=== PATIENT | male | born 1965 ===

== ENCOUNTER 2021-12-18 08:59 | Inpatient (IN) ==
[2021-12-08 15:54] LABS: Basophils # (Auto) 0.02 K/mcL (0.00-0.30); Basophils % (Auto) 0.3 % (0.0-2.0); Eosinophils # (Auto) 0.01 K/mcL (0.00-0.70); Eosinophils % (Auto) 0.2 % (0.0-7.0); Hematocrit 39.8 % (34.1-44.9); Hemoglobin 13.9 g/dL (11.2-15.7); Lymphocytes # (Auto) 1.88 K/mcL (1.50-4.80); Lymphocytes % (Auto) 31.9 % (15.5-49.0); Mean Cell Volume 88.2 fL (80.0-100.0); Mean Corpuscular HGB Conc 34.9 g/dL (31.0-36.0); Mean Platelet Volume 10.3 fL (7.4-10.4); Monocytes # (Auto) 0.53 K/mcL (0.10-0.90); Neutrophils % (Auto) 58.6 % (38.0-78.0); Platelet Count 278 K/mcL (140-440); RBC 4.51 M/mcL (3.59-5.38); WBC 5.9 K/mcL (4.5-11.0)
[2021-12-08 16:16] LABS: Blood Urea Nitrogen 12 mg/dL (6-20); Calcium 8.6 mg/dL (8.6-10.4); Carbon Dioxide 23 mmol/L (22-30); Chloride 105 mmol/L (96-108); Glomerular Filtration Rate 103; Glucose 89 mg/dL (70-105)
[2021-12-08 16:43] LABS: Appearance,Urine HAZY (Clear); Bilirubin,Urine Negative (Negative); Color,Urine YELLOW; Culture Indicated,Urine No; Glucose,Urine (UA) Negative (Negative); Ketones,Urine 5 mg/dL (Negative); Leukocyte Esterase,Urine Negative /uL (Negative); Nitrate,Urine Negative (Negative); Protein,Urine Negative (Negative); Specific Gravity,Urine 1.021 (1.000-1.035); Urine Blood Negative (Negative); Urobilinogen,Urine Negative
--- NOTE | 2021-12-15 06:56 | EKG ---
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
[~2021-12-18 08:59] MED LIST: 0.9 % SODIUM CHLORIDE 9 ML, KETOROLAC 30 MG, ROPIVACAINE HCL/PF 49.5 ML, EPINEPHrine 0.... IJ SCH; ACETAMINOPHEN 500 MG TABLET PO SCH; CELECOXIB 200 MG CAPSULE PO SCH; IPRATROPIUM/ALBUTEROL 3 ML AMPUL.NEB NEB PRN; PREGABALIN 75 MG CAPSULE PO SCH; SCOPOLAMINE 1 PATCH PATCH TOPICAL PRN; ceFAZolin 2 GM in DEXTROSE 5% IN WATER 50 ML IV SCH; oxyCODONE 10 MG TAB.ER.12H PO SCH
[2021-12-18 09:18] LABS: POC Calcium, Ionized 1.1 (1.16-1.32); POC Creatinine 0.6 (0.6-1.2); POC Potassium 2.8 (3.3-5.1)
[2021-12-18] MEDS ORDERED: POTASSIUM CHLORIDE 20 MEQ in DEXTROSE 5% IN WATER 250 ML IV SCH (09:50)
[2021-12-18] MEDS ORDERED: POTASSIUM CHLORIDE 20 MEQ PACKET PO SCH (09:50)
[2021-12-18] MEDS ORDERED: PROPOFOL 200 MG/20 ML VIAL IV ONE (10:44)
[2021-12-18] MEDS ORDERED: LIDOCAINE HCL/PF 100 MG/5 ML SYRINGE IV ONE (10:44)
[2021-12-18] MEDS ORDERED: ONDANSETRON 4 MG/2 ML VIAL ONE (10:44)
[2021-12-18] MEDS ORDERED: MAGNESIUM SULFATE 2 GM/50 ML BAG IV ONE (10:44)
[2021-12-18] MEDS ORDERED: KETAMINE 50 MG/ML Syringe (ANEST) IV ONE (10:44)
[2021-12-18] MEDS ORDERED: ROPIVACAINE HCL/PF 20 ML VIAL IJ ONE (10:44)
[2021-12-18] MEDS ORDERED: GLYCOPYRROLATE 0.2 MG/ML VIAL IV ONE (10:44)
[2021-12-18] MEDS ORDERED: DEXAMETHASONE 10 MG/ML VIAL ONE (10:44)
[2021-12-18] MEDS ORDERED: TRANEXAMIC ACID 1,000 MG/10 ML VIAL ONE (10:44)
[2021-12-18] MEDS ORDERED: LACTATED RINGERS 250 ML IV PRN (11:59)
[2021-12-18] MEDS ORDERED: NALOXONE HCL 0.4 MG/ML VIAL IV PRN (11:59)
[2021-12-18] MEDS ORDERED: ACETAMINOPHEN 1,000 MG/100 ML BAG IV ONE (11:59)
[2021-12-18] MEDS ORDERED: IPRATROPIUM/ALBUTEROL 3 ML AMPUL.NEB NEB PRN (11:59)
[2021-12-18] MEDS ORDERED: ONDANSETRON 4 MG/2 ML VIAL IV PRN ×2 (11:59→12:16)
[2021-12-18] MEDS ORDERED: MEPERIDINE 25 MG/ML VIAL IV PRN (11:59)
[2021-12-18] MEDS ORDERED: PROMETHAZINE 25 MG/ML VIAL IV PRN (11:59)
[2021-12-18] MEDS ORDERED: fentaNYL 100 MCG/2 ML VIAL IV PRN (11:59)
[2021-12-18] MEDS ORDERED: LACTATED RINGERS 1,000 ML IV SCH (12:00)
--- NOTE | 2021-12-18 12:05 | Discharge Plan ---
Discharge Instructions - TKA Patient Instructions Total Knee Protocol: For Total Knee: Start ROM JOYCE with stationary bike or rocking chair. Work on gaining full extension of knee. Posterior dislocation precautions provided. Hip abductor strengthening and gait training instructions provided. Apply Cryocuff as instructed. Dressing Care: Other Additional Dressing Instructions: Leave Zip line closure patch intact until followup Discharge Plan Patient/Caregiver Discharge Instructions Activity: ambulate only with your walker and as per physical therapy Diet: Regular Diet Prescriptions: New hydrocodone-acetaminophen 10-325 mg tablet 1 - 2 tab PO Q4H PRN (Reason: pain) Qty: 75 0RF aspirin [Ecotrin Low Strength] 81 mg tablet,delayed release (DR/EC) 81 mg PO BID Qty: 60 0RF docusate sodium 100 mg capsule 100 mg PO BID Qty: 60 0RF No Action venlafaxine [Effexor XR] 150 mg Capsule,Extended Release 24hr 150 mg PO DAILY 0RF losartan 25 mg Tablet 25 mg PO DAILY 0RF ferrous sulfate 325 mg (65 mg iron) Tablet 325 mg PO QAMCC 0RF multivitamin with minerals Tablet 1 tab PO DAILY 0RF Other Ambulatory Orders: CPM Discharge Order (ONCE) Location: None Selected Ordered By: Clifton Tan Physical Therapy DC - TKA (Routine) Location: None Selected Ordered By: Clifton Tan Toilet Riser Discharge Order (ONCE) Location: None Selected Ordered By: Clifton Tan Walker (ONCE) Location: None Selected Ordered By: Clifton Tan Follow Up Plan Follow up with: Xu Ch MD [Physician] - 01/02/22 9:30 am Clifton Tan PA-C [Physician Chuck Wagon Driver] - Patient Disposition: Home, Self-Care Prognosis: Good Rehab Potential: Good I certify that the patient requires SNF services: No Overall status at discharge: patient is progressing back to baseline Discharge Orders: Discharge Order (Routine); Ordered 12/19/21 Ordered By: Clifton Tan
--- NOTE | 2021-12-18 12:15 | Brief Operative Note ---
Brief Operative Note Date of procedure: 12/18/21 Pre-op diagnosis: Left knee failed tibia Post-op diagnosis: same Procedure: Left tka revision Grafts/Implants: Yes Anesthesia: GETA Complications: none Surgeon: Xu Ch [employer]: Clifton Tan Estimated blood loss (cc): 54 Tourniquet Time (Minutes): 35 Specimens Removed/Pathology: other Condition: stable Disposition: PACU
[2021-12-18] MEDS ORDERED: ACETAMINOPHEN 325 MG TABLET PO PRN (12:16)
[2021-12-18] MEDS ORDERED: TRANEXAMIC ACID 1,000 MG/10 ML VIAL IV SCH (12:16)
[2021-12-18] MEDS ORDERED: HYDROmorphone 1 MG/ML SYRINGE IV PRN (12:16)
[2021-12-18] MEDS ORDERED: FLEETS ADULT ENEMA PR PRN (12:16)
[2021-12-18] MEDS ORDERED: POLYETHYLENE GLYCOL 3350 17 GM PACKET PO PRN (12:16)
[2021-12-18] MEDS ORDERED: BISACODYL 10 MG SUPP.RECT PR PRN (12:16)
[2021-12-18] MEDS ORDERED: MAGNESIUM HYDROXIDE 30 ML ORAL.SUSP PO PRN (12:16)
--- NOTE | 2021-12-18 12:59 | XRay Report ---
INDICATION: post-op left knee revision TECHNIQUE: AP and lateral COMPARISON: Previous examination dated 11/23/2021 FINDINGS:Status post revision of left total knee arthroplasty. Prosthetic components are in anatomic positions. Medial and lateral femoral tibial joint spaces have been widened previous examination. There is postoperative soft tissue and intra-articular gas IMPRESSION: Status post revision of left total knee arthroplasty Interpreted and Authenticated by: Floyd Francois 12/18/21
[2021-12-18] MEDS: 0.45 % SODIUM CHLORIDE 1,000 ML IV SCH (15:17)
[2021-12-18] MEDS: HYDROcodone/APAP 10/325MG TABLET PO PRN ×2 (15:18→19:37)
[2021-12-18] MEDS: 0.9 % SODIUM CHLORIDE 10 ML SYRINGE IV SCH (15:22)
--- NOTE | 2021-12-18 15:29 | Operative Note ---
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 POSTOPERATIVE DIAGNOSIS: Left knee tibial plateau failure. PROCEDURE: Left total knee arthroplasty revision. SURGEON: Xu Ch M.D. TORPEDO WORKER: Clifton Tan PA-C. The PA's assistance was required for the safe and efficient completion of the entire case. This provider's expertise and technical skill were required throughout the case. The PA assisted with preoperative coordination, intraoperative retraction, wound closure, dressing and splint application, as well as postoperative documentation and care coordination. ANESTHESIA: General endotracheal anesthesia. IMPLANTS: Size 4 tibial baseplate with a size 19 poly deep dish liner with a 15 mm stem for revision stem. ESTIMATED BLOOD LOSS: About 50 mL. COMPLICATIONS: None. TOURNIQUET TIME: 35 minutes. SPECIMENS REMOVED: Soft tissue specimen, which revealed no significant white blood cells. CONDITION: Stable. DISPOSITION: To PACU. DESCRIPTION OF PROCEDURE: The patient was brought to the operating room, put to sleep with general LMA anesthesia. Once asleep, the patient had the left leg sterilely prepped and draped. We placed out Ioban over the skin. Timeout was performed confirming the left knee as a revision. Once this was confirmed, the leg was exsanguinated and tourniquet inflated to 250 pounds of pressure. A midline incision was made. A midvastus approach was performed, showing a total knee arthroplasty. There was overhanging of the tibial plateau implant. This was removed because of the malposition of the tibial plateau implant along with its cement. Once done, we were able to then place an intramedullary guide, and made our cut to refresh the tibial surface, removing about 3 mm of bone. Once this was done, we then trialed the size 4 implant, centering it in the tibial plateau, and then trialed different size polys to re-tension the knee, still maintaining full motion. The knee achieved full extension, 130 degrees of flexion. The 19 mm poly seemed to be the most appropriate given the tension. We irrigated thoroughly. We then placed a tibial plateau implant. This was a 15 mm augmented stem with a size 4. This was moved medially and refreshed the central canal reaming. We removed all bone. The final implant was placed with cement. Once cemented into place, we then placed the 19 mm poly liner. This was reduced. This seemed to work very well through the full arc of motion. We irrigated thoroughly and kept the knee at 45 degrees until the cement was dry. Any excess cement had been removed and then closed the midvastus approach with #1 Stratafix x2. Skin was closed with Stratafix and adhesive closure. Blood loss was 54 mL. No complications. RBH:vashti Job ID: [id number] Doc ID: [id number] Xu Ch MD
[2021-12-18] MEDS: ceFAZolin 1 GM VIAL IV SCH (17:31)
[2021-12-18] MEDS ORDERED: OMEPRAZOLE 20 MG CAPSULE PO ONE (20:19)
[2021-12-18] MEDS ORDERED: SENNOSIDES 1 TABLET PO SCH (21:00)
[2021-12-18] MEDS ORDERED: TEMAZEPAM 15 MG CAPSULE PO PRN (21:00)
[2021-12-18] MEDS: ASPIRIN 81 MG TAB.CHEW PO SCH (21:12)
[2021-12-18] MEDS: DOCUSATE SODIUM 100 MG CAPSULE PO SCH (21:12)
[2021-12-19] MEDS: 0.9 % SODIUM CHLORIDE 10 ML SYRINGE IV SCH ×2 (00:14→05:32)
[2021-12-19] MEDS: ceFAZolin 1 GM VIAL IV SCH (01:34)
[2021-12-19] MEDS: 0.45 % SODIUM CHLORIDE 1,000 ML IV SCH ×2 (03:31→09:26)
[2021-12-19] MEDS: HYDROcodone/APAP 10/325MG TABLET PO PRN ×2 (05:30→12:05)
--- NOTE | 2021-12-19 06:53 | Orthopedic Progress Note ---
SUBJECTIVE Subjective Patient information: Note initiated : 12/19/21 at 6:53 am Service Date, if different from initiated Date: [] Patient: Marcy Enamorado 55 y/o M admitted on 12/18/21 for Left Revision Total Knee Arthroplasty/Iliotibial . Chief Complaint: [Pt is stable this morning on post operative day without any significant concerns or complaints. Patients vital signs have remained stable. Patients dressing is dry and is grossly intact from a neurovascular and motor standpoint. Patients 10 point ROS is otherwise negative. ] Constitutional Vitals: Vital Signs Temp Pulse Resp BP Pulse Ox 97.9 F 75 16 124/78 96 12/19/21 02:29 12/19/21 02:29 12/19/21 02:29 12/19/21 02:29 12/19/21 02:29 Period Temp Pulse Resp BP Sys/Lock Pulse Ox Last 24 Hr 97.1 F-98.5 F 72-101 14-22 96-144/61-95 92-100 Intake and Output 12/18/21 12/19/21 12/19/21 21:59 05:59 13:59 Intake Total 2320 1555 Output Total 1475 2150 Balance 845 -595 Weight 200 lb 8 oz Intake & Output: Intake & Output 12/18/21 12/19/21 12/19/21 21:59 05:59 13:59 Intake Total 2320 1555 Output Total 1475 2150 Balance 845 -595 Weight 200 lb 8 oz Intake: IV 1000 Sodium Chloride 0.45% 1,000 ml 1000 @ 100 mls/hr IV .Q10H RADHA Rx#: [id number] Oral 2320 555 Output: Void Amount 1475 2150 Other: Meal Dinner Percent of Meal Consumed 100% Feeding Ability Independent Urine Appearance Clear Clear Urine Color Bright Yellow Bright Yellow Urine Odor Normal Normal Stool Size Small Stool Color Green Stool Consistency Soft # Unmeasured Emesis 1 # of times incontinent of 1 Bowels # Emeses 1 Extremities Exam Extremities exam: Present normal capillary refill, normal inspection, Foot pink and warm and neurovascular intact OBJ DATA Labs CBC & Chem 7: 12/19/21 05:04 12/08/21 11:48 Labs: Abnormal Lab Results 12/19/21 12/18/21 05:04 09:15 Hct 34.8 L POC Hct 38.0 L POC Potassium 2.8 L* POC Chloride 109 H POC Total CO2 21.0 L POC WB Ioniz Calcium 1.10 L Meds: Medications Acetaminophen (Acetaminophen 325 Mg Tablet) 650 mg PO Q6HP PRN; Protocol PRN Reason: Per Pain Protocol/Fever > 101 Hydrocodone Bitart/Acetaminophen (Hydrocodone/Apap 10/325mg Tablet) 1 - 2 tab PO Q4HP PRN; Protocol PRN Reason: Per Pain Protocol Last Admin: 12/19/21 05:30 Dose: 2 tab Documented by: Aspirin (Aspirin 81 Mg Tab.Chew) 81 mg PO BID [facility] Last Admin: 12/18/21 21:12 Dose: 81 mg Documented by: Bisacodyl (Bisacodyl 10 Mg Supp.Rect) 10 mg NV Q2-3DAYS PRN PRN Reason: Constipation Docusate Sodium (Docusate Sodium 100 Mg Capsule) 100 mg PO BID [facility] Last Admin: 12/18/21 21:12 Dose: 100 mg Documented by: Ferrous Sulfate (Ferrous Sulfate 325 Mg Tablet) 325 mg PO QAMCC [facility] Hydromorphone HCl (Hydromorphone 1 Mg/Ml Syringe) 0.5 - 2 mg IV Q2HP PRN; Protocol PRN Reason: Per Pain Protocol Sodium Chloride (Sodium Chloride 0.45%) 1,000 mls @ 100 mls/hr IV .Q10H [facility] Last Admin: 12/19/21 03:31 Dose: Not Given Documented by: Iron Carb/Multivit/Supervisor Rose Grading/Folic Acid (Multivit,Ther Iron,Ca,Fa & Min 1 Tablet) 1 tab PO DAILY [facility] Losartan Potassium (Losartan 25 Mg Tablet) 25 mg PO DAILY [facility] Magnesium Hydroxide (Magnesium Hydroxide 30 Ml Oral.Susp) 30 ml PO BIDP PRN PRN Reason: Constipation Omeprazole (Omeprazole 20 Mg Capsule) 40 mg PO QAMAC [facility] Ondansetron HCl (Ondansetron 4 Mg/2 Ml Vial) 4 mg IV Q4HP PRN PRN Reason: Nausea And Vomiting Polyethylene Glycol (Polyethylene Glycol 3350 17 Gm Packet) 17 gm PO DAILYP PRN PRN Reason: Constipation Senna (Sennosides 1 Tablet) 2 tab PO HS [facility] Last Admin: 12/18/21 21:12 Dose: 2 tab Documented by: Sodium Biphosphate/Sodium Phosphate (Fleets Adult Enema) 1 dose NV Q3-4DAYS PRN PRN Reason: Constipation Sodium Chloride (0.9 % Sodium Chloride 10 Ml Syringe) 10 ml IV Q8 [facility] Last Admin: 12/19/21 05:32 Dose: 10 ml Documented by: Temazepam (Temazepam 15 Mg Capsule) 15 mg PO HSP PRN PRN Reason: Insomnia Venlafaxine HCl (Venlafaxine 150 Mg Cap.Xl.24h) 150 mg PO DAILY RADHA A/P Narrative A/P Narrative: The patient has been educated regarding dressing care, , restrictions, and follow up appointments. The patient has had all necessary DME prescribed. The patient has remained relatively stable during their hospital course. Time Spent With Patient Time: Total time spent is greater than 50% in coordination of care (as documented) at patient's floor/unit and/or counseling patient: Total time spent with greater than 50% in coordination of care (as documented) at patient's floor/unit and/or counseling patient:: less than 15 minutes Critical Care Time: No
[2021-12-19] MEDS ORDERED: OMEPRAZOLE 20 MG CAPSULE PO SCH (07:30)
[2021-12-19] MEDS ORDERED: FERROUS SULFATE 325 MG TABLET PO SCH (08:00)
[2021-12-19] MEDS ORDERED: VENLAFAXINE 150 MG CAP.XL.24H PO SCH (09:00)
[2021-12-19] MEDS ORDERED: LOSARTAN 25 MG TABLET PO SCH (09:00)
[2021-12-19] MEDS ORDERED: MULTIVIT,THER IRON,CA,FA & MIN 1 TABLET PO SCH (09:00)
[2021-12-19] MEDS: ASPIRIN 81 MG TAB.CHEW PO SCH (09:10)
[2021-12-19] MEDS: DOCUSATE SODIUM 100 MG CAPSULE PO SCH (09:27)
== END 2021-12-19 12:56 | disposition home or self-care (01) | DRG 467 ==
LOC: MEDSUR 08:59 → EDSTATUS 12:45
PROVIDERS: ADMIT Orthopaedic Surgery; ATTEND Orthopaedic Surgery